=== PATIENT | female | born 1955 | race Caucasian/White ===

== ENCOUNTER 2024-08-12 20:56 | Emergency (ER) | payer MEDICARE, OTHER ==
[2024-08-12] MEDS: Acetaminophen 325 MG Tab PO ONE (22:31)
[2024-08-12] MEDS: Ibuprofen 600 MG Tab PO ONE (22:31)
[2024-08-12] MEDS: Ondansetron 4 MG Tab.DIS PO ONE (23:42)
== END 2024-08-12 23:50 | disposition home or self-care (01) ==
LOC: JD.ED 20:56
DX: S42.202A Unspecified fracture of upper end of left humerus, initial encounter for closed fracture (principal); Z88.1 Allergy status to other antibiotic agents; Z79.899 Other long term (current) drug therapy; W18.39XA Other fall on same level, initial encounter; Y93.89 Activity, other specified
CPT/HCPCS: 73020; 73060; 99283; A9270